=== PATIENT | male | born 2005 | race Caucasian/White ===

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

== ENCOUNTER 2025-03-31 14:05 | Emergency (ER) | payer OTHER, SELFPAY ==
[2025-03-31 14:06] VITALS: BP 165/104
--- NOTE | 2025-03-31 14:42 | ED.GENMED ---
History of Present Illness
General
Chief Complaint: Alcohol Problem
Source: patient
Exam Limitations: none
Time Seen by Provider: 03/31/25 14:28
History of Present Illness
History of Present Illness:
20yoM with history of alcohol abuse and dystonia on oxcarbazepine presenting for detox evaluation. Patient has been drinking heavily for the past several months. He drinks to the point of blacking out at times. He reports drinking about 1 handle
of hard liquor per day. He is interested in quitting and decided to come to the ED to obtain help with this. His last drink was about 1 hour ago. He had some vomiting earlier today. Currently, his only symptom is feeling like he has a 'hang
over.' No history of alcohol withdrawal or seizures.
Phy Exam
General Physical Exam
General Presentation: well appearing and no apparent distress
General Skin: warm and dry
General Habitus: normal
General Mental: alert
ENT Exam
ENT Exam: normocephalic
Cardiovascular Exam
Cardiovascular Exam: tachycardia
Pulmonary Exam
Pulmonary Exam: lungs clear, no respiratory distress, no rales, no crackles, no rhonchi and no wheezing
Neurological Exam
Neurological Exam: alert
Karie Coma Scale
Eye Opening: Spontaneous
Verbal Response: Oriented
Motor Response: Obeys Commands
GCS Total Score: 15
Skin Exam
Skin Exam: normal color and warm/dry
Psychiatric Exam
Psychiatric Exam: normal mood/affect
Scores
Withdrawal Assessment of Alcohol
Withdrawal Assessment Completed?: Not applicable
Course
Orders/Labs/Results
Orders:
Orders
03/31/25 14:41
Electrocardiogram (*1) Urgent
Reason for Study: Bradycardia / Tachycardia
Cardiac Monitoring- Treatment ONCE
EKG- Treatment ONCE
0.9% Sodium Chloride 1000 ml [Nss] 1,000 ml IV BOLUS
03/31/25 15:12
Alcohol Urgent
Complete Blood Count/With Diff Urgent
Comprehensive Metabolic Panel Urgent
Magnesium Urgent
Abnormal Lab Results
03/31/25
15:12
BUN 7 L mg/dl
(9-20)
Glucose 112 H mg/dl
(70-99)
Albumin 5.4 H g/dl
(3.5-5.0)
03/31/25 15:12
03/31/25 15:12
Vital Signs
Initial and Last Documented VS:
Initial Vital Signs
Temp Pulse Resp BP Pulse Ox
98.6 F 143 20 165/104 97
03/31/25 14:06 03/31/25 14:06 03/31/25 14:06 03/31/25 14:06 03/31/25 14:06
Last Documented Vital Signs
Temp Pulse Resp BP Pulse Ox
98.6 F 109 14 141/94 94
03/31/25 15:21 03/31/25 16:30 03/31/25 16:30 03/31/25 16:19 03/31/25 16:30
MDM/Problems Addressed
Differential Diagnosis Includes:
20yoM here for detox evaluation. Hx of heavy alcohol use over the past few months. Last drink 1 hour ago, no current s/s of withdrawal. HR 143 in triage although EKG obtained shortly after initial exam and HR improved to 92. Differential diagnosis
includes but is not limited to: alcohol intoxication, alcohol withdrawal, electrolyte abnormality
Initial ED plan: Check CBC, CMP, magnesium, ETOH, and EKG. IV fluid bolus. Will consult [facility].
*Pulse Oximetry
SaO2: 97
Oxygen Mode of Delivery: Room air
Patient hypoxic: no (97%)
*EKG
Interpreted by ED Provider?: Yes
EKG Intrepretation Date: 03/31/25
Heart Rate: 92
Rate: normal
Rhythm: sinus
[place]: right axis deviation
Interval: normal interval
QRS Pattern: right bundle branch block (incomplete)
Ischemia: no ischemia
*Critical Care Note
Total Time (30-74mins, 75-104mins- exclusive of procedures): Not Applicable
Update Note
Update Note:
Alcohol level 291. Remainder of labs unremarkable including normal electrolytes, renal function, LFTs. EKG shows normal sinus rhythm without ischemic changes or ectopy. Patient was evaluated at [facility] and was accepted at [facility] in [place]. Patient picked up from ED with plan to be transported directly to detox facility for further treatment. He was discharged in stable condition.
ED Attending Note
-
Portions of this chart may have been created with voice recognition software.� Occasional wrong word or��sound alike� substitutions may have occurred due to the inherent limitations of voice recognition software.
Discharge Plan
Departure
Patient Disposition: Home (Routine Discharge)
Date of Disposition: 03/31/25
Time of Disposition: 16:24
Patient with high blood pressure during this ER visit?: Yes
Discharge Problem:
Alcohol abuse
Instructions: Alcohol Use Disorder (DC)
Prescriptions:
No Action
oxcarbazepine 150 mg Tablet Extended Release 24 Hr
150 mg PO DAILY
Referrals:
NONE,* [Active, Internal Medicine]
Activity Restrictions/Additional Instructions:
You are being discharged directly to [facility] for further care.
Interventions
Interventions:
*Risk Screen - Suicide Last Done: 03/31/25 14:06
*General Assessment Last Done: 03/31/25 14:06
*Neglect/Abuse Screening Last Done: 03/31/25 15:21
*ED- Fall Risk Assessment Last Done: 03/31/25 15:21
*ED COVID-19 Vaccine History Last Done: 03/31/25 15:21
*Nursing Disposition Last Done: 03/31/25 16:35
ED- Neurological Assessment Last Done: 03/31/25 15:21
ED-Psychological Assessment Last Done: 03/31/25 15:21
Discharge Date and Time
Discharge Date/Time: 03/31/25 18:19
Print Language: ESTONIAN
[2025-03-31 15:07] VITALS: BP 130/86
[2025-03-31] MEDS: NSS 1000 IV (15:13)
[2025-03-31 15:20] VITALS: BMI 20.9
[2025-03-31 15:21] VITALS: BP 130/86
--- NOTE | 2025-03-31 15:34 | EDRN ---
[facility] Currently at the pts bedside
[2025-03-31 15:35] LABS: ALT (SGPT) 35 U/L (0-50); AST (SGOT) 38 U/L (17-59); Albumin 5.4 g/dl (3.5-5.0); Alkaline Phosphatase 88 U/L (38-126); Blood Urea Nitrogen 7 mg/dl (9-20); Calcium 9.6 mg/dl (8.4-10.2); Carbon Dioxide 29 mmol/L (22-30); Chloride 102 mmol/L (98-107); Estimated Creatinine Clearance > 125 ml/min; Glucose 112 mg/dl (70-99); Hematocrit 44.6 % (39.0-52.0); Hemoglobin 16.2 g/dL (13.0-18.0); Magnesium 2.1 mg/dl (1.6-2.3); Mean Corp Hgb Conc. 36.3 g/dL (33.0-37.0); Mean Corpuscular Volume 84.2 fL (80.0-94.0); Nucleated Red Blood Cells % 0 % (-); Platelet Count 319 10^3/uL (130-400); Potassium 4.0 mmol/L (3.5-5.1); Red Cell Dist. Width 12.2 % (11.5-14.5); Sodium 144 mmol/L (135-145); Total Protein 7.6 g/dl (6.3-8.2); eGFR > 60.00
[2025-03-31 16:00] VITALS: BP 141/94
[2025-03-31 16:19] VITALS: BP 141/94
== END 2025-03-31 18:19 | disposition home or self-care (01) ==
LOC: EMR 14:05
PROVIDERS: Physician Assistant; EMERGENCY PHYSICIAN Student in an Organized Health Care Education/Training Program
DX: F10.10 Alcohol abuse, uncomplicated (principal); R11.10 Vomiting, unspecified; I45.10 Unspecified right bundle-branch block
CPT/HCPCS: 99284; 96360; 80053; 82077; 83735; 85025; 93005